=== PATIENT | female | born 1985 | race Caucasian/White ===

== ENCOUNTER 2017-02-24 00:26 | Emergency (ER) | payer OTHER ==
[~2017-02-24] VITALS: Ht 160 cm; Wt 68.9 kg
[2017-02-24 00:31] VITALS: BP 94/62
--- NOTE | 2017-02-24 00:37 | NUR ---
TO ER BED 8
--- NOTE | 2017-02-24 00:40 | NUR ---
CAME IN WITH C/O NAUSEA, VOMITING AND DIARRHEA WITH SPASMS TO FACE , HANDS AND LES.
[2017-02-24] MEDS ORDERED: ONDANSETRON 4 MG/2 ML VIAL IVP ONE (00:45)
[2017-02-24] MEDS ORDERED: NACL 0.9% 1,000 ML IV ONE ×2 (00:45→01:10)
--- NOTE | 2017-02-24 01:04 | NUR ---
Patient being evaluated by physician at bedside WITH ORDERS AND CARRIED OUT.
[2017-02-24 01:08] LABS: APPEARANCE,URINE HAZY (CLEAR); BILIRUBIN,URINE NEGATIVE (NEGATIVE); BLOOD, URINE 3+ (NEGATIVE); COLOR,URINE YELLOW (YELLOW); LEUKOCYTE ESTERASE ,URINE NEGATIVE (NEGATIVE); NITRITE, URINE NEGATIVE (NEGATIVE); PROTEIN,URINE 1+ (NEGATIVE); UGLUCOSE NEGATIVE (NEGATIVE); UROBILINOGEN,URINE 0.2 EU/dL (0.2 - 1)
[2017-02-24] MEDS ORDERED: KETOROLAC 30 MG/ML VIAL IVP ONE (01:10)
[2017-02-24] MEDS ORDERED: DICYCLOMINE 20 MG/2 ML VIAL IM ONE (01:10)
[2017-02-24 01:19] LABS: HEMATOCRIT 39.5 % (36-48); HEMOGLOBIN 12.9 g/dL (12.0-16.0); MEAN CORPUSCULAR HEMOGLOBIN 29 pg (27-31); MEAN CORPUSCULAR HGB CONC 33 g/dL (33-37); MEAN CORPUSCULAR VOLUME 89 fL (80-94); PLATELET COUNT (AUTO) 231 K/uL (140-450); RED BLOOD CELL COUNT(AUTO) 4.46 MIL/uL (4.20-5.40); RED CELL DISTRIBUTION WIDTH 12.6 % (11.6-13.7); WHITE BLOOD COUNT (AUTO) 13.6 K/uL (4.8-10.8)
[2017-02-24 01:28] LABS: BAND % (MANUAL) 1 % (0-8); LYMPHOCYTES % (MANUAL) 7 % (20-46); MONOCYTES % (MANUAL) 5 % (5-12); NEUTROPHILS % (MANUAL) 87 (43-65)
[2017-02-24 01:30] LABS: ALBUMIN 3.9 g/dL (3.4-5.0); CALCIUM 8.8 mg/dL (8.5-10.1); CARBON DIOXIDE 26.1 mmol/L (21-32); CREATININE 0.9 mg/dL (0.6-1.3); POTASSIUM 3.1 mmol/L (3.5-5.1); TOTAL BILIRUBIN 1.1 mg/dL (0.0-1.0); TOTAL PROTEIN, SERUM 7.9 g/dL (6.4-8.2)
[2017-02-24 01:33] LABS: BACTERIA,URINE OCCASSIONAL /HPF (None Seen); RBC,URINE 20-50 /HPF (0-5); WBC,URINE 0-5 (RARE) /HPF (0-5)
[2017-02-24 01:34] LABS: MUCUS,URINE 1+ /LPF (None Seen)
[2017-02-24] MEDS ORDERED: POTASSIUM CHLORIDE 10 MEQ TABER PO ONE (01:45)
[2017-02-24 02:30] VITALS: BP 104/60
--- NOTE | 2017-02-24 02:30 | NUR ---
Patient discharged with v/s stable. Written and verbal after care instructions given and explained. Patient alert, oriented and verbalized understanding of instructions. Ambulatory with steady gait. All questions addressed prior to discharge. ID band removed. Patient advised to follow up with PMD. Rx of FLAGYL, BENTYL, ZOFRAN given. Patient educated on indication of medication including possible reaction and side effects. Opportunity to ask questions provided and answered.
== END 2017-02-24 02:30 | disposition home or self-care (01) ==
LOC: MED 00:26
DX: R10.13 Epigastric pain (principal); R11.2 Nausea with vomiting, unspecified; R19.7 Diarrhea, unspecified
CPT/HCPCS: 36415; 80053; 81001; 81025; 83690; 85025; 96372; 96374; 96375; 99285; J0500; J1885; J2405; J7030; 99284